=== PATIENT | female | born 1960 | race Caucasian/White ===

== ENCOUNTER → 2016-08-24 | Outpatient (CLI) | payer OTHER ==
[~2016-08-24] MED LIST: ARMOUR THYROID PO; CHOL100015 PO; ESTROGEN TP; OMEG1CAP6 PO; PROG50VI IM
[2016-08-24 14:24] LABS: HEMOGLOBIN 14.7 g/dL (11.7-16.4)
[2016-08-24 14:35] LABS: ASPARTATE AMINO TRANSFERASE 13 U/L (15-37); BLOOD UREA NITROGEN 14 mg/dL (7-18)
[2016-08-25 13:06] LABS: THYROGLOBULIN AB 0.9 IU/mL (0.0-0.9)
== END | disposition home or self-care (01) ==
LOC: STAR 13:19
PROVIDERS: ATTEND Surgery
DX: Z01.818 Encounter for other preprocedural examination (principal)
CPT/HCPCS: 36415; 71020; 80053; 84432; 85025; 86800; 93005

== ENCOUNTER 2016-08-29 10:03 | Observation (INO) | payer OTHER ==
[~2016-08-29] VITALS: Ht 175.3 cm; Wt 85.4 kg
[2016-08-29] MEDS ORDERED: POTASSIUM CHLORIDE 20 MEQ in D5%-0.45% NACL 1,000 ML IV SCH (10:40)
[2016-08-29] MEDS ORDERED: ONDANSETRON 2MG/ML, 2ML ONE (10:48)
[2016-08-29] MEDS ORDERED: PROPOFOL 10 MG/ML, 20ML ONE (10:48)
[2016-08-29] MEDS ORDERED: GLYCOPYRROLATE 0.2MG/1ML ONE (10:48)
[2016-08-29] MEDS ORDERED: PROPOFOL 10 MG/ML, 50ML ONE (10:48)
[2016-08-29] MEDS ORDERED: DEXAMETHASONE 4 MG/ML, 1ML ONE (10:48)
[2016-08-29] MEDS ORDERED: SUCCINYLCHOLINE 20 MG/ML, 10ML ONE (10:48)
[2016-08-29] MEDS ORDERED: DIPHENHYDRAMINE 25 MG CAPSULE PO PRN (11:00)
[2016-08-29] MEDS ORDERED: OXYcodone/APAP 5/325MG TABLET PO PRN (11:00)
[2016-08-29] MEDS ORDERED: DIPHENHYDRAMINE 50 MG/ML, 1ML IV PRN (11:00)
[2016-08-29] MEDS ORDERED: ONDANSETRON 2MG/ML, 2ML IVPush PRN (11:00)
[2016-08-29] MEDS ORDERED: HYDROmorphone 1 MG/ML, 1ML IV PRN (11:00)
[2016-08-29] MEDS ORDERED: PLEASE ENTER ALLERGIES MC SCH ×2 (11:30)
[2016-08-29] MEDS ORDERED: PLEASE ENTER HEIGHT AND WEIGHT MC SCH (11:30)
[2016-08-29] MEDS ORDERED: MIDAZOLAM 1 MG/ML, 2ML ONE (12:38)
[2016-08-29] MEDS ORDERED: FENTANYL PF 250 MCG/5ML ONE (12:38)
[2016-08-29] MEDS ORDERED: GABAPENTIN 300 MG CAPSULE PO STA (12:53)
[2016-08-29] MEDS ORDERED: ACETAMINOPHEN 500 MG TABLET PO ONE (13:00)
[2016-08-29] MEDS: LACTATED RINGERS 1,000 ML IV SCH ×3 (13:39→20:02)
[2016-08-29] MEDS ORDERED: SCOPOLAMINE PATCH, 1.5MG PATCH.TD72 TD ONE ×2 (14:27→15:19)
[2016-08-29] MEDS ORDERED: ACETAMINOPHEN 325 MG TABLET PO PRN (15:30)
[2016-08-29] MEDS ORDERED: hydrALAzine 20 MG/ML, 1ML IV PRN (15:30)
[2016-08-29] MEDS ORDERED: OXYcodone 5 MG/5 ML ORAL.SOL UDC PO PRN (15:30)
[2016-08-29] MEDS ORDERED: HALOPERIDOL 5 MG/ML IV PRN (15:30)
[2016-08-29] MEDS ORDERED: METOPROLOL 1 MG/ML, 5ML IV PRN (15:30)
[2016-08-29] MEDS ORDERED: ALBUTEROL SULFATE 2.5 MG/3 ML NPPB PRN (15:30)
[2016-08-29] MEDS ORDERED: MEPERIDINE/PF 25MG/0.5ML IVPush PRN (15:30)
[2016-08-29] MEDS ORDERED: FENTANYL PF 100 MCG/2ML ONE (17:27)
[2016-08-29] MEDS ORDERED: HYDROmorphone 2 MG/ML, 1ML ONE (17:27)
[2016-08-29] MEDS: FENTANYL PF 100 MCG/2ML IV PRN ×2 (17:31→18:00)
[2016-08-29] MEDS: HYDROmorphone 1 MG/ML, 1ML IV PRN ×3 (17:40→18:06)
[2016-08-29 18:35] VITALS: BP 115/73
[2016-08-29] MEDS ORDERED: CALCITRIOL 0.5 MCG CAPSULE PO SCH (21:00)
[2016-08-29] MEDS ORDERED: CALCIUM CARBONATE 500 MG TAB.CHEW PO SCH (21:00)
[2016-08-29] MEDS: POTASSIUM CHLORIDE 20 MEQ in D5%-0.45% NACL 1,000 ML IV SCH (21:38)
[2016-08-29] MEDS: CALCITRIOL 0.5 MCG CAPSULE PO SCH (21:59)
[2016-08-29] MEDS: CALCIUM CARBONATE 500 MG TAB.CHEW PO SCH (22:01)
[2016-08-30 00:13] VITALS: BP 115/76
[2016-08-30 02:55] VITALS: BP 118/70
[2016-08-30] MEDS ORDERED: DIPHENHYDRAMINE 25 MG CAPSULE PO PRN (03:00)
[2016-08-30] MEDS: CALCIUM CARBONATE 500 MG TAB.CHEW PO SCH ×2 (05:33→11:58)
[2016-08-30] MEDS: POTASSIUM CHLORIDE 20 MEQ in D5%-0.45% NACL 1,000 ML IV SCH ×2 (05:33→11:57)
[2016-08-30] MEDS ORDERED: LEVOTHYROXINE 150 MCG TABLET PO SCH ×2 (06:00)
[2016-08-30 07:04] VITALS: BP 93/58
[2016-08-30] MEDS ORDERED: CALC200T3 PO (08:43)
[2016-08-30] MEDS ORDERED: CALC0.5C PO (08:48)
[2016-08-30] MEDS ORDERED: PNEUMOCOCCAL VACC.PER PHARMACY IM ONE (09:00)
[2016-08-30] MEDS ORDERED: PNEUMOCOCCAL 23 VACCINE IM-VACC ONE (09:30)
[2016-08-30] MEDS: CALCITRIOL 0.5 MCG CAPSULE PO SCH (09:42)
[2016-08-30 12:22] VITALS: BP 107/50
[2016-08-30] MEDS ORDERED: LEVO150T47 PO (13:52)
[2016-08-30] MEDS ORDERED: OXYC-302 PO (13:52)
== END 2016-08-30 14:07 | disposition home or self-care (01) ==
LOC: OUT 12:40 → EDSTATUS 14:45 → OR 18:43 → INTOOBSV 18:47 → 4NOR 18:47 → OBSVTOIN 18:47 → 4NOR 08-30 13:47 → DCLOUNGE 08-30 13:47 → UNDODISIN 08-30 14:07
PROVIDERS: ADMIT Surgery; ATTEND Surgery
DX: C73 Malignant neoplasm of thyroid gland (principal); E06.3 Autoimmune thyroiditis; E04.2 Nontoxic multinodular goiter; Z98.890 Other specified postprocedural states
CPT/HCPCS: 36415; 60240; 60512; 82040; 82310; 88305; 88307; C1760; G0378; J0330; J1100; J1170; J2250; J2405; J2704; J3010; J3480; J7120; J3490